=== PATIENT | female | born 2000 | race Caucasian/White ===

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

== ENCOUNTER → 2019-06-03 | Outpatient (CLI) | payer MEDICAID, SELFPAY | END | disposition home or self-care (01) | LOC: LABSPEC 16:16 | PROVIDERS: Visit Provider Obstetrics & Gynecology | DX: N39.0 Urinary tract infection, site not specified (principal) | CPT/HCPCS: 87077; 87086; 87088; 87186 ==

== ENCOUNTER → 2020-06-24 | Outpatient (CLI) | payer MEDICAID, SELFPAY ==
[2020-06-28 03:07] LABS: Chlamydia By Nucleic Acid AMP Negative (Negative)
[2020-06-28 07:57] LABS: Gonococcus By Nucleic Acid AMP Negative (Negative)
== END | disposition home or self-care (01) ==
LOC: LABSPEC 06-25 08:43
PROVIDERS: Visit Provider Obstetrics & Gynecology
DX: Z11.3 Encounter for screening for infections with a predominantly sexual mode of transmission (principal)
CPT/HCPCS: 87491; 87591

== ENCOUNTER → 2020-07-07 16:30 | Outpatient (CLI) | payer MEDICAID, SELFPAY ==
[2020-07-07 17:17] LABS: Absolute Lymphocyte Count 3.79 X10^3/uL (0.83-4.51); Absolute Neutrophil Count 7.3 X10^3/uL (2.0-7.7); Basophil# 0.03 X10^3/uL; Basophil% 0.3 % (0-1); Eosinophil# 0.07 X10^3/uL; Eosinophils% 0.6 % (0-5); Hematocrit 37.9 % (37-47); Hemoglobin 13.1 g/dL (12.0-15.0); Lymphocyte # 3.79 X10^3/ul (4.0); Mean Corp Hgb Conc 34.6 g/dL (32-36); Mean Corpuscular Hgb 30.7 pg (27.0-32.0); Mean Corpuscular Volume 88.8 fL (81-99); Mean Platelet Vol. 10.1 fl (6.2-12.0); Monocyte# 0.67 X10^3/uL; Monocyte% 5.6 % (0-10); NRBC Flagged by Analyzer 0 % (0-5); Neutrophil # 7.26 X10^3/uL (2.7-7.7); Neutrophil % 61.2 % (47-70); Platelet Count 306 K/mm3 (150-450); RBC Distribution Width CV 11.9 % (11.6-14.6); RBC Distribution Width SD 38.3 fl (35.1-43.9); Red Blood Count 4.27 M/mm3 (4.2-5.4); White Blood Count 11.9 K/mm3 (4.4-11.0)
[2020-07-07 18:26] LABS: Color, Urine Yellow (Yellow); Glucose, Dipstick Normal (Normal); Ketone-Dipstick Negative (Negative); Leukocyte Esterase-Dipstick 100 /ul (Negative); Nitrite-Dipstick Negative (Negative); Occult Blood-Urine Negative /ul (Negative); Protein-Dipstick Negative (Negative); Specific Gravity, Urine 1.015 (1.002-1.030); Urine Bilirubin Dipstick Negative (Negative); Urine Clarity Sl. Cloudy (Clear); Urine Urobilinogen Normal (Normal); Urine pH 6.5 (5.0 - 8.0)
[2020-07-07 18:57] LABS: Thyroid Stim Hormone (TSH) 1.47 uIU/mL (0.358-3.74)
[2020-07-08 04:31] LABS: Prenatal RPR NONREACTIVE (NONREACTIVE)
[2020-07-08 10:20] LABS: HIV - WCH Non-Reactive (Nonreactive); Hepatitis B Surface Antigen Non-Reactive (Nonreactive); Hepatitis C Antibody Non-Reactive (Nonreactive); Rubella IgG 82.6 IU/mL
== END ==
PROVIDERS: Visit Provider Obstetrics & Gynecology
DX: Z34.81 Encounter for supervision of other normal pregnancy, first trimester (principal)
CPT/HCPCS: 36415; 81002; 84443; 85025; 86703; 86762; 86803; 87340

== ENCOUNTER → 2020-10-26 16:02 | Outpatient (CLI) | payer MEDICAID, SELFPAY ==
[2020-10-26 17:30] LABS: Hemoglobin 11.1 g/dL (12.0-15.0); Mean Corp Hgb Conc 33.6 g/dL (32-36); Mean Corpuscular Hgb 30.7 pg (27.0-32.0); Mean Corpuscular Volume 91.2 fL (81-99); Mean Platelet Vol. 9.9 fl (6.2-12.0); Platelet Count 301 K/mm3 (150-450); RBC Distribution Width CV 12.5 % (11.6-14.6); RBC Distribution Width SD 41.1 fl (35.1-43.9); Red Blood Count 3.62 M/mm3 (4.2-5.4); White Blood Count 10.2 K/mm3 (4.4-11.0)
[2020-10-26 17:39] LABS: Glucose Challenge Gest 1H 50g 96 mg/dL (70-140)
== END ==
PROVIDERS: Visit Provider Obstetrics & Gynecology
DX: Z34.82 Encounter for supervision of other normal pregnancy, second trimester (principal)
CPT/HCPCS: 36415; 82950; 85027

== ENCOUNTER → 2021-01-18 | Outpatient (CLI) | payer MEDICAID, SELFPAY | END | disposition home or self-care (01) | PROVIDERS: Visit Provider Obstetrics & Gynecology | DX: Z36.85 Encounter for antenatal screening for Streptococcus B (principal) | CPT/HCPCS: 87081 ==

== ENCOUNTER → 2021-02-09 | Outpatient (CLI) | payer MEDICAID, SELFPAY | END | disposition home or self-care (01) | LOC: LABSPEC 14:16 | PROVIDERS: Referring Provider Obstetrics & Gynecology; Visit Provider Obstetrics & Gynecology | DX: Z03.818 Encounter for observation for suspected exposure to other biological agents ruled out (principal) | CPT/HCPCS: 87635; C9803; U0002 ==

== ENCOUNTER 2021-02-10 05:00 | Inpatient (IN) | payer MEDICAID, SELFPAY ==
[2021-02-10] VITALS (18 sets, daily range): BP systolic 103–126; BP diastolic 44–80; PULSE 67–102; RESP 14–18; TEMP 35.8–36.7; O2SAT 96–100; BMI 33.0
[2021-02-10] MEDS: Lactated Ringers 1,000 ML 999 ML IV (05:15)
[2021-02-10 05:50] LABS: Absolute Lymphocyte Count 3.13 X10^3/uL (0.83-4.51); Absolute Neutrophil Count 6.1 X10^3/uL (2.0-7.7); Basophil# 0.03 X10^3/uL; Basophil% 0.3 % (0-1); Eosinophil# 0.05 X10^3/uL; Eosinophils% 0.5 % (0-5); Hematocrit 31.8 % (37-47); Hemoglobin 10.1 g/dL (12.0-15.0); Lymphocyte # 3.13 X10^3/ul (0.83-4.51); Lymphocyte % 31.8 % (19-41); Mean Corp Hgb Conc 31.8 g/dL (32-36); Mean Corpuscular Hgb 27.5 pg (27.0-32.0); Mean Corpuscular Volume 86.6 fL (81-99); Mean Platelet Vol. 11.4 fl (6.2-12.0); Monocyte# 0.46 X10^3/uL; Monocyte% 4.7 % (0-10); NRBC Flagged by Analyzer 0 % (0-5); Neutrophil # 6.13 X10^3/uL (2.7-7.7); Neutrophil % 62.4 % (47-70); Platelet Count 300 K/mm3 (150-450); RBC Distribution Width CV 14.2 % (11.6-14.6); RBC Distribution Width SD 44.1 fl (35.1-43.9); Red Blood Count 3.67 M/mm3 (4.2-5.4); White Blood Count 9.8 K/mm3 (4.4-11.0)
[2021-02-10] MEDS: Acetaminophen 500 MG Tablet 1000 MG PO ×3 (05:59→17:54)
[2021-02-10] MEDS: Lactated Ringers 1,000 ML 150 ML IV (06:16)
--- NOTE | 2021-02-10 06:44 | PCM.HPOB.BLA ---
History and Physical Date of Admission: 02/10/21 Chief complaint: Repeat section IUD placement at term History of present illness: 20-year-old G2, P1 at 39 weeks and 5 days with CRISTIN: 02/13/2020 1 x 8-week ultrasound arrives for repeat section and IUD placement. Denies headache, visual changes, chest pain, shortness of breath, nausea vomiting, right upper quadrant pain. Patient states good movement. Obstetric history: G1: Term primary for nonreassuring heart tones, oligohydramnios G2: Current Past medical history: None Medications: vitamin Past surgical history section, tonsils and adenoids Allergies no known drug allergies Social history: Former smoker 1 to 2 years, denies alcohol use, drug use Family history: Denies history of DVT or PE Review of systems: Besides above pertinent positives were review of systems was performed found to be negative Physical exam: Vital Signs Temp Pulse Resp BP Pulse Ox 02/10/21 05:15 97.3 F L 102 H 16 126/80 H 96 General: Normal-appearing no acute distress HEENT: Normocephalic atraumatic Cardiac/respiratory: No use of accessory muscles nonlabored breathing Abdomen: Soft, nontender, gravid Extremities: No peripheral edema normal peripheral pulses Psych: Normal affect normal demeanor nonpressured speech Mom's Labs & Results 02/10/21 02/10/21 05:15 05:15 WBC 9.8 RBC 3.67 L Hgb 10.1 L Hct 31.8 L MCV 86.6 MCH 27.5 MCHC 31.8 L RDW Std Deviation 44.1 H RDW Coeff of Jamar 14.2 Plt Count 300 MPV 11.4 Immature Gran % (Auto) 0.300 Neut % (Auto) 62.4 Lymph % (Auto) 31.8 [place] % (Auto) 4.7 Eos % (Auto) 0.5 Baso % (Auto) 0.3 Absolute Neuts (auto) 6.1 Absolute Lymphs (auto) 3.13 Nucleated RBC % 0 Blood Type Pending Antibody Screen Pending Labs Blood Type: A RH: POSITIVE RPR/VDRL/Syphilis Nonreactive Rubella status Immune HbSAg Negative Date Done: 07/07/20 Chlamydia Negative Gonorrhea Negative HIV/AIDS Non-Reactive Group B Strep: Negative Assessment plan: Is a 20-year-old G2, P1 at 39 weeks and 5 days for repeat section IUD placement. -Admit labor and delivery -CEFM -GBS negative -Liletta IUD -Routine orders -Anesthesia see
[2021-02-10] MEDS: Levonorgestrel IUD (Liletta) 1 EACH INTRA-UTER (07:47)
[2021-02-10] MEDS: Cefazolin 2 GM in 0.9% Normal Saline 100 ML IV (08:05)
--- NOTE | 2021-02-10 08:17 | OP.PCM_ITS ---
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 Normal uterus, tubes, and ovaries. Consent: Patient with history of section and desires immediate IUD placement. In need of repeat section and IUD placement. Patient understands the risk of the procedure include but are not limited to visceral or vascular injury, prolonged hospitalization, blood loss need for transfusion, reoperation, IUD expulsion. Patient states understanding wish to proceed. All questions were answered consent was signed. Procedure: Patient was brought back to the OR where spinal anesthesia found to be adequate. 2 g of Ancef were given for infection prophylaxis. Patient was prepared and draped in a dorsal supine position with leftward tilt. A Pfannenstiel incision was made the skin with a scalpel. This incision was carried down to the fascia with a scalpel. Fascia excised extended laterally. Inferior aspect of the fascia was grasped with a clamp and the underlying rectus and terminalis muscle were dissected off sharply with Nash scissors. In a similar fashion the superior aspect of the fascia was grasped with a clamp and the underlying rectus muscle was dissected off sharply. Rectus muscle was dissected the midline down to the level pubic symphysis. Preperitoneal fatty tissue was noted and peritoneum was entered bluntly. Peritoneum was extended superiorly and inferiorly with good visualization of bladder. Bladder blade was inserted and vesicouterine peritoneum was identified. Low transverse hysterotomy incision was made. Hand was placed into the hysterotomy and gentle fundal pressure was applied once the head was brought into the hysterotomy and the bladder blade was removed. Head and shoulders were delivered with ease. Cord was cut and clamped. Baby handed off to nursing. Placenta was delivered via cord traction and fundal massage. IV oxytocin was initiated in order to facilitate uterine contractions. Uterus was exteriorized and wiped out with dry laparotomy sponges in order to remove remaining placental membranes. Liletta IUD was placed at the fundus and strings were placed in lower uterine segment. Uterus was closed in a continuous running fashion. Second layer was performed. Good hemostasis was noted. Uterus was placed back in the abdominal cavity and good hemostasis was noted. Rectus muscle was reapproximated with horizontal mattress sutures. Fascia was closed in continuous running fashion. Skin was closed in a subcuticular fashion. All counts correct x2. Patient tolerated procedure well was brought to recovery in stable condition.
--- NOTE | 2021-02-10 08:22 | DCINST_ITS ---
<Herbie Bee - Last Filed: 02/10/21 08:22> Discharge Diet: No Restrictions Discharge Activity: Return to Normal Activity, May Drive, May not drive while taking narcotic pain medications., May Shower May resume sexual activity in: 4-6 weeks Lifting Restrictions: no lifting over 25lb for 2-3 weeks Call your doctor if your incision/area has: Continuous Slow Oozing, Foul Smelling Discharge Call your doctor if you observe: Fever of 101 or Higher, Shortness of breath, Chest pain Additional Instructions: If you experience any of the following, contact your healthcare provider. * Bleeding that soaks a pad every hour for 2 hours * Fever 100.4 or higher * Unrelieved incision or abdominal pain * Swelling, redness, discharge or bleeding from your incision or episiotomy site * Your incision begins to separate * Problems urinating (including inability to urinate or burning while urinating). * Visual changes * Severe headache * Flu-like symptoms * Pain or redness in one of both of your breasts * Pain, warmth, tenderness or swelling in your legs, especially the calf area * Frequent nausea and vomiting * Symptoms of depression or anxiety If you experience any of the following, call 911 or go to the nearest Emergency Room. * Chest pain * Problems breathing * Seizure activity * Partial or complete paralysis of a body part, slurred speech, weakness or drooping of the face, or a sudden inability to walk or hold your balance Allergies/Adverse Reactions: Allergies guaifenesin [From Mucinex] Allergy (Verified 02/10/21 05:54) Hives Medications to take at Discharge Vits [Prenatabs FA ] 1 tablet PO DAILY 12/02/18 Oxycodone [Oxyir] 5 mg PO Q6H PRN PRN 4 Days #16 tab 02/10/21 The following prescriptions were given: Oxycodone [Oxyir] 5 mg PO Q6H PRN PRN 4 Days #16 tab PRN Reason: Pain Score 6-10 Transmission Status: Received by [id number] Follow-Up: Call to make an appointment with your doctor for an incision check in 1-2 weeks. You will also need a 6 week post- follow up appointment. Test results from this visit will be discussed in further detail at your follow- up appointment, if applicable. Please Follow Up With: Herbie Bee MD When: 2 week postoperative, 6 week Primary Care Physician: Care Physician,No Primary [Primary Care Provider] - <Leelee Bee - Last Filed: 02/11/21 08:20> Cleanse incision/area with: Soap & Water Additional Instructions: If you experience any of the following, contact your healthcare provider. * Bleeding that soaks a pad every hour for 2 hours * Fever 100.4 or higher * Unrelieved incision or abdominal pain * Swelling, redness, discharge or bleeding from your incision or episiotomy site * Your incision begins to separate * Problems urinating (including inability to urinate or burning while urinating). * Visual changes * Severe headache * Flu-like symptoms * Pain or redness in one of both of your breasts * Pain, warmth, tenderness or swelling in your legs, especially the calf area * Frequent nausea and vomiting * Symptoms of depression or anxiety If you experience any of the following, call 911 or go to the nearest Emergency Room. * Chest pain * Problems breathing * Seizure activity * Partial or complete paralysis of a body part, slurred speech, weakness or drooping of the face, or a sudden inability to walk or hold your balance Follow-Up: Call to make an appointment with your doctor for an incision check in 1-2 weeks. You will also need a 6 week post- follow up appointment. Test results from this visit will be discussed in further detail at your follow- up appointment, if applicable.
[2021-02-10] MEDS: Oxytocin 30 units/NS 500 ml 30 UNITS/500 ML IV.SOLN 167 UNITS IV (08:45)
[2021-02-10] MEDS: Ketorolac 30 MG/ML Syringe IV ×3 (09:05→21:37)
[2021-02-10] MEDS: Nalbuphine 10 MG/ML Ampul 5 MG IV ×2 (09:31→09:36)
[2021-02-10] MEDS: Senna/Docusate Sodium 1 Tablet PO (11:58)
[2021-02-10] MEDS: Lactated Ringers 1,000 ML 100 ML IV (11:58)
[2021-02-10] MEDS: Prenatal Vits Tablet 1 TABLET PO (11:58)
[2021-02-10] MEDS: DiphenhydrAMINE 25 MG Capsule PO (13:03)
--- NOTE | 2021-02-10 13:24 | NURSING ---
Report given to NiteshRN
[2021-02-10] MEDS: Ondansetron 4 MG/2 ML Vial IV (15:31)
[2021-02-10] MEDS: 0.9% Saline Lock 10 ML Syringe IV ×2 (15:31→21:37)
[2021-02-11] MEDS: Acetaminophen 500 MG Tablet 1000 MG PO ×3 (00:31→11:57)
[2021-02-11 00:33] VITALS: BP 103/47; PULSE 76; RESP 17; TEMP 36.9; O2SAT 98
[2021-02-11] MEDS: 0.9% Saline Lock 10 ML Syringe IV (03:07)
[2021-02-11] MEDS: Ketorolac 30 MG/ML Syringe IV (03:07)
[2021-02-11 05:00] VITALS: BP 109/49; PULSE 70; RESP 16; TEMP 36.9; O2SAT 98
[2021-02-11 06:16] LABS: Hematocrit 28.6 % (37-47); Hemoglobin 8.8 g/dL (12.0-15.0); Mean Corp Hgb Conc 30.8 g/dL (32-36); Mean Corpuscular Hgb 27.2 pg (27.0-32.0); Mean Corpuscular Volume 88.3 fL (81-99); Mean Platelet Vol. 10.5 fl (6.2-12.0); Platelet Count 209 K/mm3 (150-450); RBC Distribution Width CV 14.3 % (11.6-14.6); RBC Distribution Width SD 45.4 fl (35.1-43.9); Red Blood Count 3.24 M/mm3 (4.2-5.4); White Blood Count 9.9 K/mm3 (4.4-11.0)
--- NOTE | 2021-02-11 08:18 | PCM.PN.OB ---
Subjective: Postop day 1. Feeling well without much pain. Bleeding minimal. - Physical Exam Vitals/I&O's: Vital Signs Temp Pulse Resp BP Pulse Ox 98.4 F 70 16 109/49 L 98 02/11/21 05:00 02/11/21 05:00 02/11/21 05:00 02/11/21 05:00 02/11/21 05:00 Oxygen Delivery Method Room Air Weight: 90.083 kg Body Mass Index (BMI) 33.0 Intake and Output for Last 24 Hours 02/09/21 02/10/21 02/11/21 23:59 23:59 23:59 Intake Total 3465 / 3465 Output Total 1000 / 1000 1000 / 1000 Balance 2465 / 2465 -1000 / -1000 General: Alert, Oriented x3, No apparent distress HEENT: Atraumatic, Normocephalic Neck: Supple Lungs: Normal air movement Cardiovascular: Regular rate Abdomen: Soft, Non Tender - Uterus 2 cm below umbilicus, dressing clean and dry Extremities: No clubbing, No edema Neurological: Cranial nerves II-XII grossly intact Psych/Mental Status: Normal Affect, Appropriate Laboratory Results 02/11/21 06:10: WBC 9.9, RBC 3.24 L, Hgb 8.8 L, Hct 28.6 L, MCV 88.3, MCH 27.2, MCHC 30.8 L, RDW Std Deviation 45.4 H, RDW Coeff of Jamar 14.3, Plt Count 209, MPV 10.5 Current Medications Acetaminophen (Acetaminophen 500 Mg Tablet) 1,000 mg PO Q6 SANDI Last Admin: 02/11/21 06:05 Dose: 1,000 mg Documented by: Bisacodyl (Bisacodyl 10 Mg Suppository) 10 mg RC UD PRN PRN Reason: If no BM Diphenhydramine HCl (Diphenhydramine 25 Mg Capsule) 25 mg PO Q6H PRN PRN PRN Reason: ITCHING Stop: 02/11/21 08:43 Last Admin: 02/10/21 13:03 Dose: 25 mg Documented by: Enoxaparin Sodium (Enoxaparin 40 Mg/0.4 Ml Syringe) 40 mg SC DAILY SANDI Hydrocortisone (Hydrocortisone 2.5% Crm) 1 applic TOPICAL TID PRN PRN; Protocol PRN Reason: Discomfort Nalbuphine HCl (Nalbuphine 10 Mg/Ml Ampul) 5 mg IV Q3H PRN PRN PRN Reason: ITCHING Stop: 02/11/21 08:42 Last Admin: 02/10/21 09:36 Dose: 5 mg Documented by: Naloxone HCl (Naloxone 0.4 Mg/Ml Syringe) 0.02 mg IV Q1M PRN PRN Reason: RR <10 and pt unresponsive Ondansetron HCl (Ondansetron 4 Mg/2 Ml Vial) 4 mg IV Q4H PRN PRN PRN Reason: Nausea Last Admin: 02/10/21 15:31 Dose: 4 mg Documented by: Oxycodone HCl (Oxycodone 5 Mg Tablet) 5 - 10 mg PO Q4H PRN PRN PRN Reason: Pain Score 4-10 Multivit/Folic Acid/Iron ( Vits Tablet) 1 tablet PO DAILY [facility] Last Admin: 02/10/21 11:58 Dose: 1 tablet Documented by: Prochlorperazine Edisylate (Prochlorperazine 10 Mg/2 Ml Vial) 10 mg IV Q6H PRN PRN PRN Reason: NAUSEA Senna/Docusate Sodium (Senna/Docusate Sodium 1 Tablet) 0 tablet PO DAILY [facility] Last Admin: 02/10/21 11:58 Dose: 2 tablet Documented by: Simethicone (Simethicone 80 Mg Tablet) 80 mg PO [facility] PRN PRN Reason: Indigestion/stomach pain Sodium Chloride (0.9% Saline Lock 10 Ml Syringe) 5 - 15 ml IV UD PRN PRN Reason: SALINE FLUSH Last Admin: 02/11/21 03:07 Dose: 15 ml Documented by: Medical Necessity - Tobacco Use Smoking Status: Former smoker Assessment/Plan All Active Problems 40 weeks gestation of (Acute) Status post section (Acute) 20-year-old postop day 1 status post repeat section. Acute on chronic anemia secondary to surgery. Patient instructed to take iron 3 times weekly at home. Home today.
[2021-02-11 08:20] VITALS: BP 110/62; PULSE 79; RESP 18; TEMP 37.1; O2SAT 99
[2021-02-11] MEDS: Prenatal Vits Tablet 1 TABLET PO (09:59)
[2021-02-11] MEDS: Senna/Docusate Sodium 1 Tablet PO (09:59)
== END 2021-02-11 13:45 | disposition home or self-care (01) | DRG 540 ==
PROVIDERS: Admitting Provider Obstetrics & Gynecology; Visit Provider Obstetrics & Gynecology
PROC: 10D00Z1 Extraction of Products of Conception, Low, Open Approach (ICD-10-PCS; CPT 59514; principal; 2021-02-10 07:15)
DX: O34.211 Maternal care for low transverse scar from previous cesarean delivery (principal); Z37.0 Single live birth; Z30.430 Encounter for insertion of intrauterine contraceptive device; O41.03X0 Oligohydramnios, third trimester, not applicable or unspecified; O76 Abnormality in fetal heart rate and rhythm complicating labor and delivery; Z87.891 Personal history of nicotine dependence; Z3A.40 40 weeks gestation of pregnancy; Z03.818 Encounter for observation for suspected exposure to other biological agents ruled out
CPT/HCPCS: 85025; 85027; 86850; 86900; 86901; 87635; 99218; C9803; J7120; A4216; G0378; J2405; U0002

== ENCOUNTER 2021-03-30 05:20 | Emergency (ER) | payer MEDICAID, SELFPAY ==
[2021-02-10 05:15] VITALS: BMI 33.0
[2021-03-30 05:21] VITALS: BP 126/66; PULSE 150; RESP 16; TEMP 37.7; O2SAT 98; BMI 29.9
--- NOTE | 2021-03-30 05:31 | EDS_ITS ---
HPI History of Present Illness Chief Complaint: General Illness Informant: patient Onset/Context/Timing Onset: Days (2) Context: Gradual Onset Timing: Continuous Quality: sore area left side of incision where opened and minor d/c Location: lower abd Current Severity: Mild Maximum Severity: Mild Worsened by: nothing Relieved by: nothing Associated Symptoms Associated Symptoms: fever this AM to 101 Narrative Narrative: Patient had a about 1.5 months ago, couple days ago she noticed a small area on the left side of it that opened, and she has had some minor discharge from it that is serosanguineous on pictures that she shows us. She states she talked to her OB about it, and he called in generic Bactrim for it. She took the first pill around 10 PM last night, she states by midnight she started having some itchy erythema left proximal thigh, and by 3 AM she was having redness and itchiness all over. The itchiness is not severe. She denies any shortness of breath, tongue or mouth swelling or other lesions intraorally, or any other rash. She also noticed a fever at home, around 101 that she did not have before. She denies any other symptoms such as urinary symptoms, shortness of breath, cough, vomiting, earache, sore throat, rhinorrhea. PFSH PFSH no medical history Home Medications Prenatabs FA 1 tab PO DAILY 12/02/18 [History Last Taken 02/08/21 08:00] levonorgestrel [Mirena] INTRAUTERINE 03/30/21 [History Last Taken Unknown] Allergy/AdvReac Type Severity Reaction Status Date / Time guaifenesin [From Mucinex] Allergy Hives Verified 02/10/21 05:54 Sulfa (Sulfonamide Allergy Rash Verified 03/30/21 05:27 Antibiotics) Social History Smoking Status: Never smoker ROS ROS ED Constitutional Constitutional ED: Reports as per HPI and fever(s); Denies chills or lethargy Eyes Eyes: Denies change in vision or diplopia ENT ENT ED: Denies rhinorrhea or sore throat Cardiovascular Cardiovascular: Denies chest pain or palpitations Respiratory/Chest Respiratory/Chest: Denies cough or dyspnea Gastrointestinal Gastrointestinal: Denies abdominal pain, diarrhea, nausea or vomiting Genitourinary Genitourinary ED: Denies dysuria or hematuria Musculoskeletal Musculoskeletal: Denies back pain or neck pain Integumentary Reports as per HPI and rash; Denies abscess Neurologic Neurologic: Denies headache(s), paresthesias or weakness Psychiatric Psychiatric: Denies anxiety or suicidal thoughts EXAM Physical Exam Const Vital Signs: 03/30/21 05:21 03/30/21 05:43 Temperature 99.8 F H Temperature Source Temporal Pulse Rate 150 H Respiratory Rate 16 Respiratory Effort Normal Non-Labored Respiratory Pattern Normal Blood Pressure 126/66 H Blood Pressure Mean 86 Pulse Ox 98 Oxygen Delivery Method Room Air Positive well nourished and well developed General Appearance ED: well developed and NAD HEENT Reports moist mucous membranes HEENT Narrative: Oropharynx normal including tongue. No trismus or stridor. normocephalic and atraumatic Eyes PERRL and EOMs intact bilaterally Neck full ROM and supple Resp normal respiratory effort Cardio regular rate, regular rhythm and no murmurs Rate: tachycardic GI non-tender and non-distended Auscultation: normoactive bowel sounds Palpation: soft Back/Spine no CVA tenderness General Back: other FROM Extremity normal to inspection General Extremety ED: Negative for edema, pulses abnormal or tenderness General Extremity: Negative for edema or pulses abnormal Neuro oriented x3, CN's II-XII intact bilaterally, no sensory deficits noted and gait normal Sensorium / Orientation: awake and alert Motor Exam: strength 5/5 throughout Skin no wounds, no jaundice and no petechiae Skin Narrative: Diffusely erythematous extremities, trunk, face. No discrete lesions or bullae or sloughing. No intraoral lesions. scar: Well- healed except for 0.5 cm extremely superficial dehiscence at the lateral left aspect. No discharge expressible, no tenderness, no surrounding erythema. MDM MDM MDM Narrative Medical decision making narrative: Given the patient's fever and lack of symptoms, I had her give us a urine sample so we could obtain a urinalysis. It does not show infection. She did not notice any fevers subjectively until she woke up at 3 AM feeling hot but having cold chills at the same time. My shyanne picion is that this is part of the allergic reaction she is having, her exam is otherwise normal, she is very well-appearing although she is tachycardic. She is not anaphylactic, and she feels fine. She received the Benadryl and ibuprofen we gave her about 20 minutes ago, she is gently scratching her arms and her evaluation is similar. She wants to go home, and I feel like this is fine, I expect the medicines to start working and improve her tachycardia and rash/itching. We discarded her sulfa medication and added it to her allergy list. We placed a gauze dressing with some bacitracin on her very small dehisced area that does not appear to be infected or the source of this fever. At this time I would not add a different antibiotic but just watch the area and follow-up. She is comfortable with that plan all questions answered at the bedside. Lab Data Attestation: I reviewed the patient's lab results. Labs: Laboratory Results - last 24 hr 03/30/21 05:41 Urine Color Yellow Urine Clarity Clear Urine pH 6.0 Ur Specific [place] 1.020 Urine Protein 15 H Urine Glucose (UA) Normal Urine Ketones Negative Urine Occult Blood 10 H Urine Nitrite Negative Urine Bilirubin Negative Urine Urobilinogen 1 H Ur Leukocyte Esterase 25 H Urine RBC 0 SEEN Urine WBC 0-5 SEEN Ur Squamous Epith Cells 0-5 SEEN Urine Bacteria 1+ Urine Mucus 1+ Discharge Plan Triage Chief Complaint: General Illness ED Provider: Howie Schwab Dx/Rx/DC Orders Clinical Impression: Allergic reaction to sulfonamide, Dehiscence of external surgical wound Instructions: ED Drug Reaction, Other, ED Wound Check (No Infection) Prescriptions: No Action Prenatabs FA 1 TABLET tablet 1 tab PO DAILY RF: 0 Mirena 20 mcg/24 hours (6 yrs) 52 mg Intrauterine Device INTRAUTERINE RF: 0 Primary Care Provider: Care Physician,No Primary Referrals: Herbie Bee MD [STAFF PHYSICIAN] - 3-5 Days if not improving Care Physician,No Primary [Primary Care Provider] - Disposition Disposition: Home, self care
[2021-03-30] MEDS: DiphenhydrAMINE 25 MG Capsule 50 MG PO (05:45)
[2021-03-30] MEDS: Ibuprofen 600 MG Tablet PO (05:45)
[2021-03-30 05:47] LABS: Red Blood Cells-Urine 0 SEEN /hpf (0-5)
[2021-03-30 05:48] LABS: Color, Urine Yellow (Yellow); Glucose, Dipstick Normal (Normal); Ketone-Dipstick Negative (Negative); Leukocyte Esterase-Dipstick 25 /ul (Negative); Nitrite-Dipstick Negative (Negative); Occult Blood-Urine 10 /ul (Negative); Protein-Dipstick 15 mg/dl (Negative); Urine Bilirubin Dipstick Negative (Negative); Urine Clarity Clear (Clear); Urine Urobilinogen 1 mg/dl (Normal)
[2021-03-30 06:01] LABS: Bacteria 1+ /hpf (None Seen); Mucous, Urine 1+ /hpf (<or=2+); Squamous Epithelial Cells - UA 0-5 SEEN /hpf (5-10); White Blood Cells 0-5 SEEN /hpf (0-5)
[2021-03-30 06:28] VITALS: BP 132/71; PULSE 104; RESP 18; O2SAT 99
== END 2021-03-30 06:31 | disposition home or self-care (01) ==
PROVIDERS: Emergency Provider Emergency Medicine
DX: O9A.23 Injury, poisoning and certain other consequences of external causes complicating the puerperium (principal); L29.8 Other pruritus; R00.0 Tachycardia, unspecified; T37.0X5A Adverse effect of sulfonamides, initial encounter; O90.0 Disruption of cesarean delivery wound; X58.XXXA Exposure to other specified factors, initial encounter; Y92.9 Unspecified place or not applicable; R50.9 Fever, unspecified; Z79.3 Long term (current) use of hormonal contraceptives
CPT/HCPCS: 81001; 99283

== ENCOUNTER 2021-11-01 16:28 | Outpatient (CLI) | payer MEDICAID, SELFPAY ==
[2021-11-05 16:28] LABS: HPV Reflexed? NOT INDICATED
== END 2021-11-01 23:59 | disposition short-term general hospital (02) ==
LOC: LABSPEC 16:32
PROVIDERS: Visit Provider Obstetrics & Gynecology
DX: Z12.4 Encounter for screening for malignant neoplasm of cervix (principal)
CPT/HCPCS: 88175; G0145